=== PATIENT | male | born 1955 | race Caucasian/White ===

== ENCOUNTER 2017-01-09 23:01 | Emergency (ER) | payer OTHER, SELFPAY ==
[~2017-01-09] VITALS: Ht 182.9 cm; Wt 81.0 kg
[2017-01-09 23:02] VITALS: BP 184/98
[2017-01-09] MEDS ORDERED: LIDOCAINE 1%, 20ML ONE (23:21)
[2017-01-09] MEDS ORDERED: DIPH,PERTUSS(ACELL),TET VAC/PF 0.5 ML IM-VACC ONE ×2 (23:22→23:30)
[2017-01-09] MEDS ORDERED: LIDOCAINE 1%, 20ML SQ ONE (23:30)
[2017-01-10] MEDS ORDERED: BACITRACIN ZINC OINT 500U/GM, 0.9 GM ONE (00:19)
== END 2017-01-10 00:44 | disposition home or self-care (01) ==
LOC: ED 23:59
DX: S51.811A Laceration without foreign body of right forearm, initial encounter (principal); X58.XXXA Exposure to other specified factors, initial encounter; Y93.89 Activity, other specified; Y99.8 Other external cause status; Y92.009 Unspecified place in unspecified non-institutional (private) residence as the place of occurrence of the external cause
CPT/HCPCS: 12002; 90471; 90715